=== PATIENT | male | born 1990 | race Caucasian/White ===

== ENCOUNTER 2017-02-14 10:32 | Emergency (ER) | payer SELFPAY ==
[~2017-02-14] VITALS: Ht 177.8 cm; Wt 100.0 kg
[2017-02-14] MEDS ORDERED: LIDOCAINE HCL BUFFERED 1% 20 ML VIAL INJ ONE (11:00)
[2017-02-14] MEDS ORDERED: PERTUSS(ACELL),DIPH,TET VAC/PF 0.5 ML VIAL IM ONE (11:15)
[2017-02-14] MEDS ORDERED: BACITRACIN 0.9 GM PACKET OINTMENT TP ONE (12:45)
[2017-02-14 13:39] VITALS: BP 127/77
== END 2017-02-14 14:10 | disposition home or self-care (01) ==
LOC: EMS 10:34
DX: S61.412A Laceration without foreign body of left hand, initial encounter (principal); W26.0XXA Contact with knife, initial encounter; Y93.G1 Activity, food preparation and clean up; Y92.89 Other specified places as the place of occurrence of the external cause; Y99.8 Other external cause status
CPT/HCPCS: 12002; 73130; 90471; 90715; 99284; J3490

== ENCOUNTER 2017-02-16 07:51 | Emergency (ER) | payer SELFPAY ==
[~2017-02-16] VITALS: Ht 175.3 cm; Wt 104.5 kg
[2017-02-16] MEDS ORDERED: NEOMYCIN/BACITRACIN/POLYMYXIN B OINTMENT PACKET TP ONE (09:00)
[2017-02-16 09:19] VITALS: BP 130/80
== END 2017-02-16 09:21 | disposition home or self-care (01) ==
LOC: EMS 07:52
DX: Z48.00 Encounter for change or removal of nonsurgical wound dressing (principal)
CPT/HCPCS: 99282

== ENCOUNTER 2017-02-23 08:16 | Emergency (ER) | payer SELFPAY ==
[~2017-02-23] VITALS: Ht 177.8 cm; Wt 104.5 kg
[2017-02-23 08:53] VITALS: BP 122/71
== END 2017-02-23 09:03 | disposition home or self-care (01) ==
LOC: EMS 08:20
DX: Z48.02 Encounter for removal of sutures (principal)
CPT/HCPCS: 99281